=== PATIENT | female | born 1980 | race Caucasian/White ===

== ENCOUNTER 2020-07-18 09:07 | Outpatient (CLI) | payer OTHER ==
--- NOTE | 2020-07-18 09:50 | MMO ---
Bilateral MAMMO Bilat Screen [facility]. CLINICAL HISTORY: Patient is 40 years old and is seen for screening. The patient has no family history of breast cancer. The patient has no personal history of cancer. VIEWS: The views performed were: bilateral craniocaudal with tomosynthesis; bilateral mediolateral oblique with tomosynthesis; and right mediolateral oblique. This study has been interpreted with the assistance of computer-aided detection. MAMMOGRAM FINDINGS: There are scattered fibroglandular densities. There are punctate calcifications with regional distribution seen in the sub-areolar region of both breasts. IMPRESSION: CALCIFICATIONS IN BOTH BREASTS REQUIRE ADDITIONAL EVALUATION. MAGNIFICATION VIEWS ARE RECOMMENDED. THE RESULTS OF THIS EXAM WERE SENT TO THE PATIENT. ACR BI-RADS Category 0 - Incomplete: Need additional imaging evaluation. [facility] will notify the patient of the need for additional imaging services. MAMMOGRAPHY NOTE: 1. A negative mammogram report should not delay a biopsy if a dominant of clinically suspicious mass is present. 2. Approximately 10% to 15% of breast cancers are not detected by mammography. 3. Adenosis and dense breasts may obscure an underlying neoplasm. Reported by: CHUCKIE ROWLEY MD Electonically Signed: [id number]
== END 2020-07-18 09:08 | disposition home or self-care (01) ==
LOC: BICMAMMO 09:07
PROVIDERS: ATTEND Physician Assistant
DX: Z12.31 Encounter for screening mammogram for malignant neoplasm of breast (principal); R92.1 Mammographic calcification found on diagnostic imaging of breast
CPT/HCPCS: 77063; 77067

== ENCOUNTER 2020-08-01 08:31 | Outpatient (CLI) | payer OTHER ==
--- NOTE | 2020-08-01 09:04 | MMO ---
Bilateral MAMMO Bilat Diag [facility]. CLINICAL HISTORY: Patient is 40 years old and is seen for diagnostic exam. The patient has no family history of breast cancer. The patient has no personal history of cancer. VIEWS: The views performed were: bilateral craniocaudal with tomosynthesis; bilateral mediolateral oblique with tomosynthesis; and bilateral mediolateral with tomosynthesis. FILMS COMPARED: The present examination has been compared to a prior imaging study performed at [facility] on 07/18/2020. This study has been interpreted with the assistance of computer-aided detection. MAMMOGRAM FINDINGS: There are scattered fibroglandular densities. In the absence of prior films and the presence of bilaterality, the calcs are probably benign and should be followed up in 6 months. IMPRESSION: FINDINGS IN BOTH BREASTS ARE PROBABLY BENIGN. FOLLOW-UP IN 6 MONTHS IS RECOMMENDED. THE RESULTS OF THIS EXAM WERE SENT TO THE PATIENT. ACR BI-RADS Category 3 - Probably benign finding - short interval follow-up suggested. [facility] will notify the patient of the need for additional imaging services. This exam was interpreted in consultation with Dr Harsh Lemon who concurs. MAMMOGRAPHY NOTE: 1. A negative mammogram report should not delay a biopsy if a dominant of clinically suspicious mass is present. 2. Approximately 10% to 15% of breast cancers are not detected by mammography. 3. Adenosis and dense breasts may obscure an underlying neoplasm. Reported by: CHUCKIE ROWLEY MD Electonically Signed: [id number]
== END 2020-08-01 08:32 | disposition home or self-care (01) ==
LOC: BICMAMMO 08:31
PROVIDERS: ATTEND Physician Assistant
DX: R92.1 Mammographic calcification found on diagnostic imaging of breast (principal); R92.2 Inconclusive mammogram
CPT/HCPCS: 77066; G0279

== ENCOUNTER 2021-05-10 08:26 | Outpatient (CLI) | payer OTHER | END 2021-05-10 08:27 | disposition home or self-care (01) | LOC: BICMAMMO 08:26 | PROVIDERS: ATTEND Physician Assistant | DX: R92.8 Other abnormal and inconclusive findings on diagnostic imaging of breast (principal); R92.1 Mammographic calcification found on diagnostic imaging of breast | CPT/HCPCS: 77066; G0279 ==

== ENCOUNTER 2021-11-08 09:14 | Outpatient (CLI) | payer BC | END 2021-11-08 09:15 | disposition home or self-care (01) | LOC: BICMAMMO 09:14 | PROVIDERS: ATTEND Physician Assistant | DX: R92.8 Other abnormal and inconclusive findings on diagnostic imaging of breast (principal) | CPT/HCPCS: 77066; G0279 ==

== ENCOUNTER 2023-04-13 13:24 | Inpatient (IN) | payer BC ==
[2023-04-13] MEDS ORDERED: Morphine 4 MG/ML VIAL ONE ×2 (13:40→16:17)
[2023-04-13] MEDS ORDERED: Ondansetron PF 4 MG/2 ML Vial ONE ×2 (13:40→18:35)
[2023-04-13 13:43] LABS: #Eosinphils 0.1 thou/uL (0.0-0.7); #Monocytes 0.8 thou/uL (0.11-0.59); #Neutrophils 10.4 thou/uL (1.40-6.50); %Basophils 0.1 % (0.0-1.0); %Eosinophils 0.6 % (0.0-10.0); %Lymphocytes 14.5 % (21.0-51.0); %Monocytes 6.3 % (0.0-10.0); %Neutrophils 78.2 % (42.0-75.0); Hemoglobin 12.9 g/dL (12.0-16.0); Mean Corpuscular HGB CONC 31.5 g/dL (32.0-36.0); Mean Corpuscular Hemoglobin 27.8 pg (27.0-31.0); Mean Corpuscular Volume 88.4 fl (78.0-98.0); Mean Platelet Volume 10.8 fL (7.4-10.4); Platelet Count 348 10x3/uL (130-400); RBC Distribution Width 13.3 % (11.5-14.5); Red Blood Cell (RBC) Count 4.64 mill/uL (4.20-5.40); White Blood Cell (WBC) Count 13.3 10x3/uL (4.8-10.8)
[2023-04-13 14:11] LABS: ALT (SGPT) 31 U/L (8-55); AST (SGOT) 32 U/L (5-34); Albumin 4.3 g/dL (3.5-5.0); Alkaline Phosphatase 93 U/L (40-110); Anion Gap 17 mmol/L (10-20); BUN (Urea Nitrogen) 11 mg/dL (7.0-18.7); Bilirubin, Total 1.1 mg/dL (0.2-1.2); Calc. Creatinine Clearance 0 mL/min (70-130); Calcium 9.8 mg/dL (7.8-10.44); Carbon Dioxide 24 mmol/L (22-29); Chloride 101 mmol/L (98-107); Estimated GFR 88; Globulin 3.2 g/dL (2.4-3.5); Glucose 137 mg/dL (70-105); Lipase 33 U/L (8-78); Potassium 3.5 mmol/L (3.5-5.1); Protein, Total 7.5 g/dL (6.0-8.3); Sodium 138 mmol/L (136-145)
[2023-04-13] MEDS ORDERED: Iopamidol-370 76% 500 ML MDV (1 ML CHARGE) ONE (14:23)
[2023-04-13 16:01] LABS: BHCG - Serum Negative (NEGATIVE); Pregs Control Background? CLEAR/WHITE (CLR/WHITE); Pregs Control Bar Appear? YES (CONTROL BAR)
[2023-04-13 16:15] LABS: Troponin I Less than 0.010 ng/mL (< 0.028)
[2023-04-13] MEDS ORDERED: Sodium Chloride 0.9% 100 ML ONE (17:32)
[2023-04-13] MEDS ORDERED: Piperacillin/Tazobactam 4.5 GM VIAL ONE (17:32)
[2023-04-13] MEDS ORDERED: Ipratropium/Albuterol 3 ML NEB NEB PRN (17:48)
[2023-04-13] MEDS ORDERED: traMADol HCl 50 MG TAB PO PRN (17:48)
[2023-04-13] MEDS ORDERED: Ondansetron ODT 4 MG TAB PO PRN (17:48)
[2023-04-13] MEDS ORDERED: Morphine 2 MG/ML VIAL SLOW IVP PRN (17:48)
[2023-04-13] MEDS ORDERED: TETANUS, DIPHTHERIA TOX,ADULT (TDVAX) 0.5 ML VIAL IM ONE (17:48)
[2023-04-13] MEDS ORDERED: hydrALAZINE 20 MG/ML VIAL SLOW IVP PRN (17:48)
[2023-04-13] MEDS ORDERED: Piperacillin/Tazobactam 3.375 GM in Sodium Chloride 0.9% 100 ML IVPB SCH ×2 (18:00→22:00)
[2023-04-13] MEDS ORDERED: Neostigmine 0.5 MG in Syringe 0 ML SC SCH (18:00)
[2023-04-13] MEDS ORDERED: Ketorolac Tromethamine 30 MG/ML VIAL IVP SCH (18:30)
[2023-04-13] MEDS ORDERED: Ketorolac Tromethamine 30 MG/ML VIAL ONE (18:35)
[2023-04-13] MEDS ORDERED: diphenhydrAMINE 50 MG/ML VIAL IM PRN (18:46)
[2023-04-13] MEDS ORDERED: Promethazine HCl 25 MG/ML VIAL IM PRN (18:46)
[2023-04-13] MEDS ORDERED: diphenhydrAMINE 50 MG/ML VIAL IVP PRN (18:46)
[2023-04-13] MEDS ORDERED: Ondansetron PF 4 MG/2 ML Vial IVP PRN (18:46)
[2023-04-13] MEDS ORDERED: HYDROmorphone 10 mg/100 ml CADD IVPB PRN (18:46)
[2023-04-13] MEDS ORDERED: Naloxone HCl 0.4 mg/ml Vial IV PRN (18:46)
[2023-04-13] MEDS ORDERED: diphenhydrAMINE 25 MG CAP PO PRN (18:46)
[2023-04-13] MEDS ORDERED: Communication Order-Pharmacy FS SCH (19:00)
[2023-04-13] MEDS ORDERED: methylPREDNISolone Sod Succ/PF 125 MG/2 ML VIAL IVP SCH (20:00)
[2023-04-13] MEDS: methylPREDNISolone Sod Succ 40 MG VIAL IVP SCH (20:16)
[2023-04-13] MEDS: Acetaminophen 325 MG TAB PO SCH (20:17)
[2023-04-13] MEDS: Famotidine/PF 20 mg/2ml Vial SLOW IVP SCH (20:53)
[2023-04-13] MEDS: Sodium Chloride 0.9% 1,000 ML IV SCH (20:55)
[2023-04-14] MEDS: Acetaminophen 325 MG TAB PO SCH ×5 (00:23→23:16)
[2023-04-14] MEDS ORDERED: Ketorolac Tromethamine 30 MG/ML VIAL IVP PRN (00:26)
[2023-04-14] MEDS: Famotidine 20 MG TAB PO SCH ×3 (03:21→20:44)
[2023-04-14 05:09] VITALS: BMI 26.6
[2023-04-14 05:25] LABS: #Monocytes 0.5 thou/uL (0.11-0.59); #Neutrophils 5.2 thou/uL (1.40-6.50); %Basophils 0.2 % (0.0-1.0); %Lymphocytes 12.7 % (21.0-51.0); %Monocytes 7.4 % (0.0-10.0); %Neutrophils 79.5 % (42.0-75.0); Hematocrit 34.7 % (36.0-47.0); Mean Corpuscular HGB CONC 31.7 g/dL (32.0-36.0); Mean Corpuscular Hemoglobin 28.1 pg (27.0-31.0); Mean Corpuscular Volume 88.7 fl (78.0-98.0); Mean Platelet Volume 11.1 fL (7.4-10.4); Platelet Count 289 10x3/uL (130-400); RBC Distribution Width 13.5 % (11.5-14.5); Red Blood Cell (RBC) Count 3.91 mill/uL (4.20-5.40); White Blood Cell (WBC) Count 6.5 10x3/uL (4.8-10.8)
[2023-04-14 05:56] LABS: Anion Gap 14 mmol/L (10-20); BUN (Urea Nitrogen) 13 mg/dL (7.0-18.7); Calc. Creatinine Clearance 118 mL/min (70-130); Calcium 8.6 mg/dL (7.8-10.44); Carbon Dioxide 20 mmol/L (22-29); Chloride 107 mmol/L (98-107); Estimated GFR 98; Glucose 143 mg/dL (70-105); Sodium 137 mmol/L (136-145)
[2023-04-14] MEDS: Sodium Chloride 0.9% 1,000 ML IV SCH ×2 (07:22→13:32)
[2023-04-14] MEDS: Famotidine/PF 20 mg/2ml Vial SLOW IVP SCH ×2 (08:31→20:44)
[2023-04-14] MEDS: methylPREDNISolone Sod Succ 40 MG VIAL IVP SCH ×2 (08:31→20:44)
[2023-04-14] MEDS ORDERED: FLU VACC QS2023-24(6MOS UP)/PF 60 MCG/0.5 ML SYRINGE IM ONE (09:00)
[2023-04-14] MEDS ORDERED: Sodium Chloride 0.9% 1,000 ML IV SCH (11:56)
[2023-04-14] MEDS ORDERED: GoLYTELY 4,000 ml Bottle PO SCH (14:00)
[2023-04-15] MEDS: Sodium Chloride 0.9% 1,000 ML IV SCH (01:00)
[2023-04-15] MEDS: Acetaminophen 325 MG TAB PO SCH ×2 (05:39→11:42)
[2023-04-15] MEDS: Famotidine/PF 20 mg/2ml Vial SLOW IVP SCH (09:42)
[2023-04-15] MEDS ORDERED: Morphine Sulfate 2 MG/ML SYRINGE SLOW IVP PRN (09:50)
[2023-04-15] MEDS ORDERED: Meperidine HCl/PF 25 MG/ML VIAL SLOW IVP PRN (09:50)
[2023-04-15] MEDS ORDERED: Promethazine HCl 25 MG/ML VIAL IM PRN (09:50)
[2023-04-15] MEDS ORDERED: Ondansetron HCl/PF 4 MG/2 ML Vial IVP PRN (09:50)
[2023-04-15] MEDS ORDERED: Ketorolac Tromethamine 30 MG/ML VIAL IVP PRN (09:50)
[2023-04-15] MEDS ORDERED: HYDROmorphone 2 MG/ML VIAL SLOW IVP PRN (09:50)
[2023-04-15] MEDS ORDERED: PROPOFOL 200 MG/20 ML VIAL ONE (09:55)
[2023-04-15] MEDS ORDERED: Lidocaine 1% PF 5 ML VIAL ONE (09:55)
[2023-04-15] MEDS: methylPREDNISolone Sod Succ 40 MG VIAL IVP SCH (11:42)
[2023-04-15 12:16] VITALS: BP 150/102; TEMP 97.7
== END 2023-04-15 14:11 | disposition home or self-care (01) | DRG 386 ==
LOC: ERS 13:24 → SJJU 19:30
PROVIDERS: ADMIT Internal Medicine; ATTEND Internal Medicine
PROC: 0DBH8ZX Excision of Cecum, Via Natural or Artificial Opening Endoscopic, Diagnostic (ICD-10-PCS; principal; 2023-04-15)
PROC: 0DBL8ZZ Excision of Transverse Colon, Via Natural or Artificial Opening Endoscopic (ICD-10-PCS; 2023-04-15)
DX: K50.912 Crohn's disease, unspecified, with intestinal obstruction (principal); K56.1 Intussusception; K56.600 Partial intestinal obstruction, unspecified as to cause; K82.4 Cholesterolosis of gallbladder; Z79.899 Other long term (current) drug therapy; Z80.0 Family history of malignant neoplasm of digestive organs; Z87.891 Personal history of nicotine dependence
CPT/HCPCS: 36415; 74177; 76705; 80048; 80053; 83605; 83690; 84145; 84484; 84703; 85025; 86140; 88305; 93005; 96365; 96375; 96376; J1885; J2270; J2405; J2543; J2704; J2710; J2920; J3490; J7050; Q9967; S0028

== ENCOUNTER 2023-06-02 11:14 | Inpatient (IN) | payer BC ==
[2023-06-02] MEDS ORDERED: Prochlorperazine 10 MG/2 ML VIAL ONE (11:38)
[2023-06-02] MEDS ORDERED: Piperacillin/Tazobactam 3.375 GM VIAL ONE ×2 (11:49→20:26)
[2023-06-02] MEDS ORDERED: Sodium Chloride 0.9% 100 ML ONE ×2 (11:49→20:26)
[2023-06-02] MEDS ORDERED: fentaNYL 50 mcg/mL 1 mL Vial ONE (12:01)
[2023-06-02 12:04] LABS: #Monocytes 1.3 thou/uL (0.11-0.59); #Neutrophils 14.9 thou/uL (1.40-6.50); %Basophils 0.1 % (0.0-1.0); %Lymphocytes 7.6 % (21.0-51.0); %Monocytes 7.5 % (0.0-10.0); %Neutrophils 84.4 % (42.0-75.0); Hematocrit 36.1 % (36.0-47.0); Hemoglobin 11.2 g/dL (12.0-16.0); Mean Corpuscular Hemoglobin 24.9 pg (27.0-31.0); Mean Corpuscular Volume 80.2 fl (78.0-98.0); Platelet Count 413 10x3/uL (130-400); RBC Distribution Width 15.5 % (11.5-14.5); White Blood Cell (WBC) Count 17.7 10x3/uL (4.8-10.8)
[2023-06-02 12:26] LABS: BHCG - Serum Negative (NEGATIVE); Pregs Control Background? CLEAR/WHITE (CLR/WHITE); Pregs Control Bar Appear? YES (CONTROL BAR)
[2023-06-02 12:32] LABS: ALT (SGPT) 20 U/L (8-55); AST (SGOT) 13 U/L (5-34); Alkaline Phosphatase 66 U/L (40-110); Anion Gap 18 mmol/L (10-20); BUN (Urea Nitrogen) 10 mg/dL (7.0-18.7); Bilirubin, Total 1.9 mg/dL (0.2-1.2); Calc. Creatinine Clearance 0 mL/min (70-130); Calcium 9.6 mg/dL (7.8-10.44); Carbon Dioxide 22 mmol/L (22-29); Chloride 94 mmol/L (98-107); Estimated GFR 72; Globulin 3.4 g/dL (2.4-3.5); Glucose 117 mg/dL (70-105); Lipase 18 U/L (8-78); Magnesium 1.7 mg/dL (1.6-2.6); Potassium 3.3 mmol/L (3.5-5.1); Protein, Total 7.4 g/dL (6.0-8.3); Sodium 131 mmol/L (136-145)
[2023-06-02] MEDS ORDERED: Naloxone HCl 0.4 mg/ml Vial ONE (12:44)
[2023-06-02] MEDS ORDERED: HYDROmorphone 0.5 MG/0.5 ML SYRINGE ONE (12:44)
[2023-06-02] MEDS ORDERED: Ondansetron PF 4 MG/2 ML Vial ONE ×3 (13:28→21:40)
[2023-06-02 15:34] VITALS: BMI 25.8
[2023-06-02] MEDS ORDERED: Dextrose 5% in Water 1,000 ML IV PRN (15:39)
[2023-06-02] MEDS ORDERED: hydrALAZINE 20 MG/ML VIAL SLOW IVP PRN (15:39)
[2023-06-02] MEDS ORDERED: Dextrose 50% Abboject 50 ML SYRINGE SLOW IVP PRN (15:39)
[2023-06-02] MEDS ORDERED: Ipratropium/Albuterol 3 ML NEB NEB PRN (15:39)
[2023-06-02] MEDS ORDERED: Ondansetron PF 4 MG/2 ML Vial IVP PRN ×2 (15:39→21:01)
[2023-06-02] MEDS ORDERED: Glucagon 1 MG/ML KIT IM PRN (15:39)
[2023-06-02] MEDS ORDERED: Fentanyl 100 MCG/2 ML VIAL SLOW IVP PRN (15:39)
[2023-06-02] MEDS ORDERED: Promethazine HCl 25 MG/ML VIAL IM PRN ×3 (15:39→21:01)
[2023-06-02] MEDS: D5 1/2 NS w/20 mEq KCL 1,000 ML IV SCH ×2 (16:14→23:15)
[2023-06-02] MEDS ORDERED: Piperacillin/Tazobactam 3.375 GM in Sodium Chloride 0.9% 100 ML IVPB SCH ×2 (16:15→18:00)
[2023-06-02] MEDS ORDERED: Prochlorperazine Edisylate 10 MG in Sodium Chloride 0.9% 50 ML IVPB PRN (17:35)
[2023-06-02] MEDS ORDERED: Lidocaine 1% PF 5 ML VIAL ONE ×2 (17:57→20:40)
[2023-06-02] MEDS ORDERED: Rocuronium Bromide 10 MG/ML (10ML VIAL) ONE ×3 (17:59→20:40)
[2023-06-02] MEDS ORDERED: NEOSTIGMINE 3 MG/3 ML SYR 3 MG/3 ML SYRINGE ONE ×2 (20:40→21:53)
[2023-06-02] MEDS ORDERED: Glycopyrrolate 0.2 MG/ML 5 ML SYRINGE ONE ×2 (20:40→21:53)
[2023-06-02] MEDS ORDERED: PROPOFOL 200 MG/20 ML VIAL ONE (20:40)
[2023-06-02] MEDS ORDERED: Albumin 5% 500 ML ONE (20:50)
[2023-06-02] MEDS ORDERED: diphenhydrAMINE 50 MG/ML VIAL IVP PRN (21:01)
[2023-06-02] MEDS ORDERED: Ondansetron HCl/PF 4 MG/2 ML Vial IVP PRN (21:01)
[2023-06-02] MEDS ORDERED: diphenhydrAMINE 25 MG CAP PO PRN (21:01)
[2023-06-02] MEDS ORDERED: diphenhydrAMINE 50 MG/ML VIAL IM PRN (21:01)
[2023-06-02] MEDS ORDERED: FENTANYL 500 MCG/10 ML VIAL 2,000 MCG in Sodium Chloride 0.9% 60 ML IV PRN (21:01)
[2023-06-02] MEDS ORDERED: Naloxone HCl 0.4 mg/ml Vial IV PRN (21:01)
[2023-06-02] MEDS ORDERED: Fentanyl 250 MCG/5 ML VIAL ONE (21:10)
[2023-06-02] MEDS ORDERED: Communication Order-Pharmacy FS SCH (21:15)
[2023-06-02] MEDS ORDERED: Ketorolac Tromethamine 30 MG/ML VIAL ONE (22:27)
[2023-06-02] MEDS: Piperacillin/Tazobactam 3.375 GM in Sodium Chloride 0.9% 100 ML IVPB SCH (22:45)
[2023-06-02] MEDS: Famotidine 20 MG TAB PO SCH (22:45)
[2023-06-02] MEDS: Famotidine/PF 20 mg/2ml Vial SLOW IVP SCH (23:07)
[2023-06-03] MEDS: Ketorolac Tromethamine 30 MG/ML VIAL IVP PRN ×3 (05:01→20:21)
[2023-06-03] MEDS: Piperacillin/Tazobactam 3.375 GM in Sodium Chloride 0.9% 100 ML IVPB SCH ×3 (05:02→20:20)
[2023-06-03 06:16] LABS: #Monocytes 0.5 thou/uL (0.11-0.59); #Neutrophils 4.9 thou/uL (1.40-6.50); %Basophils 0.2 % (0.0-1.0); %Lymphocytes 12.5 % (21.0-51.0); %Monocytes 7.4 % (0.0-10.0); %Neutrophils 79.7 % (42.0-75.0); Hematocrit 28.8 % (36.0-47.0); Hemoglobin 8.8 g/dL (12.0-16.0); Mean Corpuscular HGB CONC 30.6 g/dL (32.0-36.0); Mean Corpuscular Hemoglobin 24.9 pg (27.0-31.0); Mean Corpuscular Volume 81.6 fl (78.0-98.0); Mean Platelet Volume 10.3 fL (7.4-10.4); RBC Distribution Width 15.6 % (11.5-14.5); Red Blood Cell (RBC) Count 3.53 mill/uL (4.20-5.40); White Blood Cell (WBC) Count 6.2 10x3/uL (4.8-10.8)
[2023-06-03 06:18] LABS: Platelet Count 300 10x3/uL (130-400)
[2023-06-03 06:40] LABS: Anion Gap 10 mmol/L (10-20); BUN (Urea Nitrogen) 7 mg/dL (7.0-18.7); Calc. Creatinine Clearance 124 mL/min (70-130); Calcium 7.5 mg/dL (7.8-10.44); Carbon Dioxide 21 mmol/L (22-29); Chloride 104 mmol/L (98-107); Estimated GFR 108; Glucose 158 mg/dL (70-105); Potassium 3.6 mmol/L (3.5-5.1); Sodium 131 mmol/L (136-145)
[2023-06-03 06:54] LABS: Hep C IgG Ab Non-Reactive S/CO (NonReactive); Hep C Index 0.05 S/CO (0-0.79)
[2023-06-03] MEDS: D5 1/2 NS w/20 mEq KCL 1,000 ML IV SCH ×2 (07:30→15:52)
[2023-06-03 07:41] LABS: HBSAg Index 0.21 S/CO (0-0.99); Hep B Surf Ag Non-Reactive S/CO (NonReactive)
[2023-06-03 07:55] LABS: HBSAB Concentration 221.27 mIU/mL; Hep B Surf AB Reactive (NonReactive)
[2023-06-03] MEDS: Famotidine/PF 20 mg/2ml Vial SLOW IVP SCH ×2 (09:12→20:20)
[2023-06-03] MEDS: Famotidine 20 MG TAB PO SCH ×2 (09:12→20:20)
[2023-06-03] MEDS: Sodium Chloride 0.9% 1,000 ML IV SCH (20:19)
[2023-06-04] MEDS: Piperacillin/Tazobactam 3.375 GM in Sodium Chloride 0.9% 100 ML IVPB SCH ×3 (04:42→20:52)
[2023-06-04] MEDS: Sodium Chloride 0.9% 1,000 ML IV SCH (04:42)
[2023-06-04 05:35] LABS: #Monocytes 0.7 thou/uL (0.11-0.59); #Neutrophils 4.9 thou/uL (1.40-6.50); %Basophils 0.3 % (0.0-1.0); %Eosinophils 0.6 % (0.0-10.0); %Lymphocytes 15.9 % (21.0-51.0); %Monocytes 10.3 % (0.0-10.0); %Neutrophils 72.6 % (42.0-75.0); Hematocrit 25.6 % (36.0-47.0); Hemoglobin 7.6 g/dL (12.0-16.0); Mean Corpuscular HGB CONC 29.7 g/dL (32.0-36.0); Mean Corpuscular Hemoglobin 24.8 pg (27.0-31.0); Mean Corpuscular Volume 83.7 fl (78.0-98.0); Mean Platelet Volume 10.1 fL (7.4-10.4); Platelet Count 274 10x3/uL (130-400); RBC Distribution Width 15.8 % (11.5-14.5); Red Blood Cell (RBC) Count 3.06 mill/uL (4.20-5.40); White Blood Cell (WBC) Count 6.7 10x3/uL (4.8-10.8)
[2023-06-04 06:02] LABS: Anion Gap 10 mmol/L (10-20); BUN (Urea Nitrogen) 4 mg/dL (7.0-18.7); Calc. Creatinine Clearance 128 mL/min (70-130); Calcium 7.7 mg/dL (7.8-10.44); Carbon Dioxide 22 mmol/L (22-29); Chloride 103 mmol/L (98-107); Estimated GFR 110; Glucose 97 mg/dL (70-105); Potassium 3.9 mmol/L (3.5-5.1); Sodium 131 mmol/L (136-145)
[2023-06-04] MEDS: Famotidine 20 MG TAB PO SCH ×2 (08:21→20:52)
[2023-06-04] MEDS: Famotidine/PF 20 mg/2ml Vial SLOW IVP SCH ×2 (08:21→20:52)
[2023-06-04] MEDS ORDERED: Acetaminophen 325 MG TAB PO PRN (11:56)
[2023-06-04] MEDS ORDERED: Fentanyl 100 MCG/2 ML VIAL SLOW IVP PRN (11:56)
[2023-06-04] MEDS: Ketorolac Tromethamine 30 MG/ML VIAL IVP PRN ×2 (12:26→20:54)
[2023-06-04] MEDS: HYDROcodone/Acetaminophen 7.5/325 mg Tablet PO PRN ×2 (12:26→20:51)
[2023-06-04] MEDS ORDERED: fentaNYL 50 mcg/mL 1 mL Vial SLOW IVP PRN (14:30)
[2023-06-04] MEDS ORDERED: Lorazepam 1 MG TAB PO PRN (21:21)
[2023-06-05] MEDS: Piperacillin/Tazobactam 3.375 GM in Sodium Chloride 0.9% 100 ML IVPB SCH ×2 (04:32→12:48)
[2023-06-05 09:15] VITALS: BP 135/95; TEMP 98.1
[2023-06-05] MEDS: HYDROcodone/Acetaminophen 7.5/325 mg Tablet PO PRN (09:16)
[2023-06-05] MEDS: Famotidine 20 MG TAB PO SCH (09:16)
[2023-06-05] MEDS: Ketorolac Tromethamine 30 MG/ML VIAL IVP PRN (09:17)
[2023-06-05] MEDS: Famotidine/PF 20 mg/2ml Vial SLOW IVP SCH (10:17)
[2023-06-06 14:13] LABS: QuantiFERON-TB Gold Plus Negative (Negative)
== END 2023-06-05 14:08 | disposition home or self-care (01) | DRG 329 ==
LOC: ERS 11:14 → EEVIPCON 13:13 → SJJU 13:13
PROVIDERS: ADMIT Surgery; ATTEND Surgery
PROC: 0DTF0ZZ Resection of Right Large Intestine, Open Approach (ICD-10-PCS; principal; 2023-06-02)
PROC: 0D1B0Z4 Bypass Ileum to Cutaneous, Open Approach (ICD-10-PCS; 2023-06-02)
PROC: 3E0M05Z Introduction of Adhesion Barrier into Peritoneal Cavity, Open Approach (ICD-10-PCS; 2023-06-02)
PROC: 30233J1 Transfusion of Nonautologous Serum Albumin into Peripheral Vein, Percutaneous Approach (ICD-10-PCS; 2023-06-02)
DX: C18.0 Malignant neoplasm of cecum (principal); K63.1 Perforation of intestine (nontraumatic); C77.2 Secondary and unspecified malignant neoplasm of intra-abdominal lymph nodes; Z98.890 Other specified postprocedural states; Z79.899 Other long term (current) drug therapy; Z79.82 Long term (current) use of aspirin
CPT/HCPCS: 36415; 71046; 80048; 80053; 82378; 83605; 83690; 83735; 84703; 85025; 86480; 86706; 86803; 87040; 87340; 88309; 96365; 96375; A4314; A4649; C1776; J0780; J1170; J1650; J1885; J2310; J2405; J2543; J2704; J3010; J3480; J3490; J7050; P9045; S0028

== ENCOUNTER 2023-06-15 13:11 | Outpatient (CLI) | payer BC ==
[2023-06-15] MEDS ORDERED: Iopamidol 370 76% 100 ML VIAL ONE (14:31)
== END 2023-06-15 13:12 | disposition home or self-care (01) ==
LOC: CT 13:11
PROVIDERS: ATTEND Internal Medicine
DX: C18.2 Malignant neoplasm of ascending colon (principal); K76.89 Other specified diseases of liver; Z90.49 Acquired absence of other specified parts of digestive tract
CPT/HCPCS: 71260; 74177; Q9967

== ENCOUNTER 2023-06-16 10:06 | Day surgery (SDC) | payer BC ==
[2023-06-15 09:33] VITALS: BMI 25.9
[2023-06-16] MEDS ORDERED: Sodium Chloride 0.9% 100 ML ONE (11:13)
[2023-06-16] MEDS ORDERED: CEFAZOLIN 2 GM VIAL ONE (11:13)
[2023-06-16] MEDS ORDERED: Lidocaine 1% MPF 2 ML VIAL ONE (11:13)
[2023-06-16] MEDS ORDERED: EPINEPHrine 1 MG/ML VIAL ONE (12:42)
[2023-06-16] MEDS ORDERED: Bupivacaine 0.25% HCL 30 ML VIAL ONE (12:42)
[2023-06-16] MEDS ORDERED: Propofol 500 MG/50 ML VIAL ONE (14:16)
[2023-06-16] MEDS ORDERED: Midazolam HCl 2 mg/2 ml Vial ONE ×2 (14:17→14:28)
[2023-06-16] MEDS ORDERED: fentaNYL PF 100 MCG/2 ML SYRINGE ONE (14:17)
[2023-06-16] MEDS ORDERED: Lidocaine 2% PF 5 ML VIAL ONE (14:19)
[2023-06-16] MEDS ORDERED: Lidocaine 1% PF 5 ML VIAL ONE ×2 (14:46→14:48)
== END 2023-06-16 16:00 | disposition home or self-care (01) ==
LOC: SDC 10:06
PROVIDERS: ATTEND Surgery
PROC: 0JH63WZ Insertion of Totally Implantable Vascular Access Device into Chest Subcutaneous Tissue and Fascia, Percutaneous Approach (ICD-10-PCS; principal; 2023-06-16)
DX: C18.9 Malignant neoplasm of colon, unspecified (principal); F17.200 Nicotine dependence, unspecified, uncomplicated; F10.90 Alcohol use, unspecified, uncomplicated; Z79.899 Other long term (current) drug therapy
CPT/HCPCS: 71045; C1788; J0171; J1642; J2001; J2250; J2704; J3490; S0020

== ENCOUNTER 2023-06-24 08:14 | Outpatient (CLI) | payer BC | END 2023-06-24 08:15 | disposition home or self-care (01) | LOC: SCSMRI 08:14 | PROVIDERS: ATTEND Internal Medicine | DX: K76.9 Liver disease, unspecified (principal); C18.9 Malignant neoplasm of colon, unspecified; K76.89 Other specified diseases of liver | CPT/HCPCS: 74183 ==

== ENCOUNTER 2023-11-25 08:56 | Outpatient (CLI) | payer BC ==
[2023-11-25] MEDS ORDERED: Iopamidol 370 76% 100 ML VIAL ONE (10:57)
[2023-11-25] MEDS ORDERED: GASTROGRAFIN 30 ML BOT ONE (10:57)
== END 2023-11-25 08:57 | disposition home or self-care (01) ==
LOC: CT 08:56
PROVIDERS: ATTEND Internal Medicine
DX: C18.9 Malignant neoplasm of colon, unspecified (principal); K76.9 Liver disease, unspecified; N83.8 Other noninflammatory disorders of ovary, fallopian tube and broad ligament
CPT/HCPCS: 71260; 74177; Q9963; Q9967

== ENCOUNTER 2023-12-16 07:58 | Outpatient (CLI) | payer BC | END 2023-12-16 07:59 | disposition home or self-care (01) | LOC: ULT 07:58 | PROVIDERS: ATTEND Internal Medicine | DX: N83.8 Other noninflammatory disorders of ovary, fallopian tube and broad ligament (principal) | CPT/HCPCS: 76856 ==

== ENCOUNTER 2023-12-24 11:31 | Outpatient (CLI) | payer BC ==
[2023-12-24 13:10] LABS: #Basophils 0.02 10x3/uL (0.0-0.2); #Eosinphils 0.03 10x3/uL (0.0-0.5); #Monocytes 0.46 10x3/uL (0.0-1.1); %Basophils 0.4 % (0.0-2.0); %Eosinophils 0.7 % (0.0-6.0); %Lymphocytes 33.4 % (18.0-47.0); %Monocytes 10.1 % (0.0-10.0); Hematocrit 35.3 % (34.9-44.5); Hemoglobin 12.4 g/dL (12.0-15.5); Mean Corpuscular HGB CONC 35.1 g/dL (32.0-36.0); Mean Corpuscular Hemoglobin 38.3 pg (27.0-33.0); Mean Platelet Volume 10.7 fL (7.4-10.4); Platelet Count 146 10x3/uL (150-450); RBC Distribution Width 12.8 % (11.5-14.5); Red Blood Cell (RBC) Count 3.24 10x6/uL (3.90-5.03); White Blood Cell (WBC) Count 4.6 10x3/uL (3.5-10.5)
[2023-12-24 13:23] LABS: Anion Gap 14 mmol/L (10-20); BHCG - Serum Negative (NEGATIVE); BUN (Urea Nitrogen) 7 mg/dL (7.0-18.7); Calc. Creatinine Clearance 0 mL/min (70-130); Calcium 9.2 mg/dL (7.8-10.44); Carbon Dioxide 20 mmol/L (22-29); Chloride 110 mmol/L (98-107); Estimated GFR 97; Glucose 90 mg/dL (70-105); Pregs Control Background? CLEAR/WHITE (CLR/WHITE); Pregs Control Bar Appear? YES (CONTROL BAR); Sodium 140 mmol/L (136-145)
== END 2023-12-24 11:32 | disposition home or self-care (01) ==
LOC: LABBT 11:31
PROVIDERS: ATTEND Surgery
DX: Z01.812 Encounter for preprocedural laboratory examination (principal); C18.9 Malignant neoplasm of colon, unspecified
CPT/HCPCS: 80048; 84703; 85025

== ENCOUNTER 2023-12-29 08:51 | Inpatient (IN) | payer BC ==
[2023-12-24 11:49] VITALS: BMI 26.6
[2023-12-29] MEDS ORDERED: PROPOFOL 20 ML ONE ×2 (10:11→12:27)
[2023-12-29] MEDS ORDERED: Rocuronium Bromide 10 MG/ML (10ML VIAL) ONE (10:14)
[2023-12-29] MEDS ORDERED: Lidocaine 1% PF 5 ML VIAL ONE (10:14)
[2023-12-29] MEDS ORDERED: fentaNYL PF 100 MCG/2 ML SYRINGE ONE ×3 (11:14→14:30)
[2023-12-29] MEDS ORDERED: Bupivacaine 0.25% HCL 30 ML VIAL ONE (11:23)
[2023-12-29] MEDS ORDERED: EPINEPHrine 1 MG/ML VIAL ONE (11:23)
[2023-12-29] MEDS ORDERED: cefOXitin 2 GM VIAL ONE (11:30)
[2023-12-29] MEDS ORDERED: Sodium Chloride 0.9% 100 ML ONE (11:30)
[2023-12-29] MEDS ORDERED: Dexamethasone 20 MG/5 ML VIAL ONE (11:50)
[2023-12-29] MEDS ORDERED: Glycopyrrolate 0.2 MG/ML 5 ML SYRINGE ONE (12:12)
[2023-12-29] MEDS ORDERED: ePHEDrine Sulfate 50 MG/10 ML VIAL ONE (12:12)
[2023-12-29] MEDS ORDERED: Ketorolac Tromethamine 30 MG (1 mL) VIAL ONE (13:01)
[2023-12-29] MEDS ORDERED: Ondansetron PF 4 MG/2 ML Vial ONE (13:01)
[2023-12-29] MEDS ORDERED: SUGAMMADEX SODIUM 200 MG/2 ML VIAL ONE (13:04)
[2023-12-29] MEDS ORDERED: HYDROmorphone 0.5 MG/0.5 ML SYRINGE ONE (14:53)
[2023-12-29] MEDS ORDERED: Promethazine HCl 25 MG/ML VIAL IM PRN (15:35)
[2023-12-29] MEDS ORDERED: Dextrose 5% in Water 1,000 ML IV PRN (15:35)
[2023-12-29] MEDS ORDERED: Ipratropium/Albuterol 3 ML NEB NEB PRN (15:35)
[2023-12-29] MEDS ORDERED: hydrALAZINE 20 MG/ML VIAL SLOW IVP PRN (15:35)
[2023-12-29] MEDS ORDERED: Glucagon 1 MG/ML KIT IM PRN (15:35)
[2023-12-29] MEDS ORDERED: Ondansetron PF 4 MG/2 ML Vial IVP PRN (15:35)
[2023-12-29] MEDS ORDERED: Dextrose 50% Abboject 50 ML SYRINGE SLOW IVP PRN (15:35)
[2023-12-29] MEDS: Acetaminophen 325 MG TAB PO SCH (17:52)
[2023-12-29] MEDS: Morphine 4 MG/ML VIAL SLOW IVP PRN (17:53)
[2023-12-29] MEDS: D5 1/2 NS w/20 mEq KCL 1,000 ML IV SCH (17:56)
[2023-12-29] MEDS: Famotidine 20 MG TAB PO SCH (20:10)
[2023-12-29] MEDS: Ketorolac Tromethamine 30 MG (1 mL) VIAL IVP PRN (20:20)
[2023-12-29] MEDS: Famotidine/PF 20 mg/2ml Vial SLOW IVP SCH (20:21)
[2023-12-30] MEDS: traMADol HCl 50 MG TAB PO PRN
[2023-12-30 06:12] LABS: #Basophils Less than 0.03 10x3/uL (0.0-0.2); #Eosinphils Less than 0.03 10x3/uL (0.0-0.7); %Basophils 0.1 % (0.0-1.0); %Lymphocytes 12.6 % (21.0-51.0); %Monocytes 4.8 % (0.0-10.0); %Neutrophils 82.3 % (42.0-75.0); Hematocrit 30.4 % (36.0-47.0); Hemoglobin 10.2 g/dL (12.0-16.0); Mean Corpuscular HGB CONC 33.6 g/dL (32.0-36.0); Mean Corpuscular Hemoglobin 36.4 pg (27.0-31.0); Mean Corpuscular Volume 108.6 fL (78.0-98.0); Platelet Count 100 10x3/uL (130-400); RBC Distribution Width 12.7 % (11.5-14.5)
[2023-12-30 06:21] LABS: Anion Gap 14 mmol/L (10-20); BUN (Urea Nitrogen) 8 mg/dL (7.0-18.7); Calc. Creatinine Clearance 121 mL/min (70-130); Calcium 7.7 mg/dL (7.8-10.44); Carbon Dioxide 18 mmol/L (22-29); Chloride 107 mmol/L (98-107); Estimated GFR 101; Glucose 122 mg/dL (70-105); Potassium 3.7 mmol/L (3.5-5.1); Sodium 135 mmol/L (136-145)
[2023-12-30] MEDS: Enoxaparin 40 MG (0.4 mL) SYRINGE SC SCH (08:45)
[2023-12-30] MEDS ORDERED: D5 1/2 NS w/20 mEq KCL 1,000 ML IV SCH (09:48)
[2023-12-30] MEDS: Ketorolac Tromethamine 30 MG (1 mL) VIAL IVP PRN (16:03)
[2023-12-31 06:54] LABS: #Basophils Less than 0.03 10x3/uL (0.0-0.2); #Eosinphils Less than 0.03 10x3/uL (0.0-0.7); %Basophils 0.1 % (0.0-1.0); %Eosinophils 0.1 % (0.0-10.0); %Lymphocytes 8.8 % (21.0-51.0); %Monocytes 4.4 % (0.0-10.0); %Neutrophils 86.2 % (42.0-75.0); Hematocrit 32.8 % (36.0-47.0); Hemoglobin 10.9 g/dL (12.0-16.0); Mean Corpuscular HGB CONC 33.2 g/dL (32.0-36.0); Mean Corpuscular Hemoglobin 37.6 pg (27.0-31.0); Mean Corpuscular Volume 113.1 fL (78.0-98.0); Mean Platelet Volume 10.5 fL (7.4-10.4); Platelet Count 95 10x3/uL (130-400); RBC Distribution Width 12.8 % (11.5-14.5)
[2023-12-31 07:07] LABS: Anion Gap 12 mmol/L (10-20); BUN (Urea Nitrogen) 4 mg/dL (7.0-18.7); Calc. Creatinine Clearance 130 mL/min (70-130); Calcium 8.1 mg/dL (7.8-10.44); Carbon Dioxide 18 mmol/L (22-29); Chloride 105 mmol/L (98-107); Estimated GFR 110; Glucose 92 mg/dL (70-105); Potassium 3.1 mmol/L (3.5-5.1); Sodium 132 mmol/L (136-145)
[2023-12-31] MEDS: Sodium Chloride 0.9% 1,000 ML IV SCH (08:38)
[2023-12-31] MEDS: Piperacillin/Tazobactam 3.375 GM in Sodium Chloride 0.9% 100 ML IVPB SCH ×2 (09:10→14:25)
[2023-12-31] MEDS: Potassium Chloride 20 MEQ in Premix 1 BAG IVPB SCH (11:40)
[2023-12-31] MEDS: D5 1/2 NS w/20 mEq KCL 1,000 ML IV SCH (11:41)
[2023-12-31] MEDS ORDERED: GASTROGRAFIN 30 ML BOT ONE (15:29)
[2023-12-31] MEDS ORDERED: Iopamidol-370 76% 500 ML MDV (1 ML CHARGE) ONE (15:29)
[2023-12-31] MEDS: Ipratropium/Albuterol 3 ML NEB NEB SCH (19:47)
[2024-01-01] MEDS: Acetaminophen 650 MG/20.3 ML UDCUP PO SCH (05:56)
[2024-01-01 06:18] LABS: Anion Gap 9 mmol/L (10-20); BUN (Urea Nitrogen) Less than 4 mg/dL (7.0-18.7); Calc. Creatinine Clearance 140 mL/min (70-130); Calcium 7.7 mg/dL (7.8-10.44); Carbon Dioxide 20 mmol/L (22-29); Chloride 107 mmol/L (98-107); Estimated GFR 112; Glucose 115 mg/dL (70-105); Potassium 3.1 mmol/L (3.5-5.1); Sodium 133 mmol/L (136-145)
[2024-01-01 06:59] LABS: Hematocrit 31.8 % (36.0-47.0); Hemoglobin 10.4 g/dL (12.0-16.0); Mean Corpuscular HGB CONC 32.7 g/dL (32.0-36.0); Mean Corpuscular Hemoglobin 36.6 pg (27.0-31.0); Mean Platelet Volume 10.7 fL (7.4-10.4); Platelet Count 100 10x3/uL (130-400); RBC Distribution Width 12.8 % (11.5-14.5); Red Blood Cell (RBC) Count 2.84 mill/uL (4.20-5.40)
[2024-01-01 08:57] LABS: Macrocytosis SLIGHT = 6-15 cells HPF (0-5); Platelet Adequacy Comment Platelets Decreased; Polychromasia SLIGHT = 2-3 cells HPF (0-2)
[2024-01-01 09:12] LABS: #Basophils Less than 0.03 10x3/uL (0.0-0.2); #Eosinphils Less than 0.03 10x3/uL (0.0-0.7); %Basophils 0.1 % (0.0-1.0); %Eosinophils 0.2 % (0.0-10.0); %Lymphocytes 9.2 % (21.0-51.0); %Monocytes 6.9 % (0.0-10.0); %Neutrophils 83.1 % (42.0-75.0)
[2024-01-01] MEDS ORDERED: D5 1/2 NS w/20 mEq KCL 1,000 ML IV SCH (09:17)
[2024-01-01] MEDS: Potassium Chloride 20 MEQ in Premix 1 BAG IVPB SCH (12:46)
[2024-01-01] MEDS: Potassium Chloride 40 MEQ in Premix 1 BAG IVPB SCH (16:02)
[2024-01-01] MEDS ORDERED: Ipratropium/Albuterol 3 ML NEB NEB PRN (17:14)
[2024-01-02] MEDS: traMADol HCl 50 MG TAB PO PRN (00:02)
[2024-01-02 07:22] LABS: #Basophils Less than 0.03 10x3/uL (0.0-0.2); %Basophils 0.3 % (0.0-1.0); %Eosinophils 1.7 % (0.0-10.0); %Lymphocytes 16.8 % (21.0-51.0); %Monocytes 7.5 % (0.0-10.0); Hematocrit 29.1 % (36.0-47.0); Hemoglobin 9.5 g/dL (12.0-16.0); Mean Corpuscular HGB CONC 32.1 g/dL (32.0-36.0); Mean Corpuscular Hemoglobin 35.1 pg (27.0-31.0); Mean Corpuscular Volume 109.2 fL (78.0-98.0); Mean Platelet Volume 10.6 fL (7.4-10.4); Platelet Count 113 10x3/uL (130-400); RBC Distribution Width 12.8 % (11.5-14.5); Red Blood Cell (RBC) Count 2.71 mill/uL (4.20-5.40)
[2024-01-02 07:41] LABS: Anion Gap 10 mmol/L (10-20); BUN (Urea Nitrogen) 4 mg/dL (7.0-18.7); Calc. Creatinine Clearance 147 mL/min (70-130); Calcium 8.2 mg/dL (7.8-10.44); Carbon Dioxide 21 mmol/L (22-29); Chloride 109 mmol/L (98-107); Estimated GFR 113; Glucose 78 mg/dL (70-105); Potassium 3.1 mmol/L (3.5-5.1); Sodium 137 mmol/L (136-145)
[2024-01-02] MEDS ORDERED: Potassium Chloride 40 MEQ in Premix 1 BAG IVPB SCH (08:00)
[2024-01-02] MEDS: Potassium Chloride 20 MEQ in Premix 1 BAG IVPB SCH ×2 (08:57→16:44)
[2024-01-02 15:46] LABS: Potassium 3.2 mmol/L (3.5-5.1)
[2024-01-02 17:57] LABS: Magnesium 1.6 mg/dL (1.6-2.6)
[2024-01-03 03:45] VITALS: BP 157/98; TEMP 97.6
[2024-01-03 06:06] LABS: Anion Gap 13 mmol/L (10-20); BUN (Urea Nitrogen) Less than 4 mg/dL (7.0-18.7); Calc. Creatinine Clearance 142 mL/min (70-130); Calcium 8.5 mg/dL (7.8-10.44); Carbon Dioxide 21 mmol/L (22-29); Chloride 106 mmol/L (98-107); Estimated GFR 112; Glucose 89 mg/dL (70-105); Potassium 3.4 mmol/L (3.5-5.1); Sodium 137 mmol/L (136-145)
== END 2024-01-03 12:59 | disposition home or self-care (01) | DRG 330 ==
LOC: SDC 08:51 → SJJU 15:30
PROVIDERS: ADMIT Surgery; ATTEND Surgery
PROC: 0DSB4ZZ Reposition Ileum, Percutaneous Endoscopic Approach (ICD-10-PCS; principal; 2023-12-29)
PROC: 8E0W4CZ Robotic Assisted Procedure of Trunk Region, Percutaneous Endoscopic Approach (ICD-10-PCS; 2023-12-29)
PROC: 3E033XZ Introduction of Vasopressor into Peripheral Vein, Percutaneous Approach (ICD-10-PCS; 2023-12-29)
DX: C18.9 Malignant neoplasm of colon, unspecified (principal); K56.7 Ileus, unspecified; Z93.2 Ileostomy status; L25.9 Unspecified contact dermatitis, unspecified cause; N94.6 Dysmenorrhea, unspecified; Z98.890 Other specified postprocedural states; Z79.899 Other long term (current) drug therapy
CPT/HCPCS: 36415; 36416; 71275; 74177; 80048; 82533; 83735; 85025; 87324; 87449; 94640; A4314; J0171; J0665; J0694; J1100; J1170; J1650; J1885; J2270; J2405; J2543; J2704; J3480; J3490; J7050; J7620; Q9963; Q9967; S0028

== ENCOUNTER 2024-01-11 15:40 | Outpatient (CLI) | payer BC | END 2024-01-11 15:41 | disposition home or self-care (01) | LOC: RAD 15:40 | PROVIDERS: ATTEND Surgery | DX: C18.9 Malignant neoplasm of colon, unspecified (principal); Z98.890 Other specified postprocedural states | CPT/HCPCS: 74019 ==

== ENCOUNTER 2024-01-16 11:46 | Outpatient (CLI) | payer BC ==
[2024-01-16] MEDS ORDERED: GASTROGRAFIN 30 ML BOT ONE (12:27)
[2024-01-16] MEDS ORDERED: Iopamidol-370 76% 500 ML MDV (1 ML CHARGE) ONE (12:27)
== END 2024-01-16 11:47 | disposition home or self-care (01) ==
LOC: RAD 11:46
PROVIDERS: ATTEND Internal Medicine Critical Care Medicine
DX: R10.9 Unspecified abdominal pain (principal); K56.699 Other intestinal obstruction unspecified as to partial versus complete obstruction; K76.89 Other specified diseases of liver; R60.0 Localized edema
CPT/HCPCS: 74177; Q9963; Q9967

== ENCOUNTER 2024-01-16 15:04 | Inpatient (IN) | payer BC ==
[2024-01-16] MEDS ORDERED: Dextrose 5% in Water 1,000 ML IV PRN (15:10)
[2024-01-16] MEDS ORDERED: Glucagon 1 MG/ML KIT IM PRN (15:10)
[2024-01-16] MEDS ORDERED: Ipratropium/Albuterol 3 ML NEB NEB PRN (15:10)
[2024-01-16] MEDS ORDERED: Ondansetron PF 4 MG/2 ML Vial IVP PRN (15:10)
[2024-01-16] MEDS ORDERED: Ketorolac Tromethamine 30 MG (1 mL) VIAL IVP PRN (15:10)
[2024-01-16] MEDS ORDERED: Promethazine HCl 25 MG/ML VIAL IM PRN (15:10)
[2024-01-16] MEDS ORDERED: Dextrose 50% Abboject 50 ML SYRINGE SLOW IVP PRN (15:10)
[2024-01-16] MEDS ORDERED: hydrALAZINE 20 MG/ML VIAL SLOW IVP PRN (15:10)
[2024-01-16] MEDS ORDERED: Acetaminophen 325 MG TAB PO PRN (15:13)
[2024-01-16 17:01] LABS: #Basophils Less than 0.03 10x3/uL (0.0-0.2); %Basophils 0.2 % (0.0-1.0); %Eosinophils 0.7 % (0.0-10.0); %Lymphocytes 24.5 % (21.0-51.0); %Monocytes 8.3 % (0.0-10.0); Hematocrit 30.7 % (36.0-47.0); Hemoglobin 9.9 g/dL (12.0-16.0); Mean Corpuscular HGB CONC 32.2 g/dL (32.0-36.0); Mean Corpuscular Hemoglobin 34.7 pg (27.0-31.0); Mean Corpuscular Volume 107.7 fL (78.0-98.0); Mean Platelet Volume 9.8 fL (7.4-10.4); Platelet Count 281 10x3/uL (130-400); RBC Distribution Width 13.2 % (11.5-14.5); Red Blood Cell (RBC) Count 2.85 mill/uL (4.20-5.40)
[2024-01-16 17:16] LABS: Anion Gap 17 mmol/L (10-20); BUN (Urea Nitrogen) 5 mg/dL (7.0-18.7); Calc. Creatinine Clearance 0 mL/min (70-130); Calcium 9.1 mg/dL (7.8-10.44); Carbon Dioxide 21 mmol/L (22-29); Chloride 105 mmol/L (98-107); Estimated GFR 110; Glucose 82 mg/dL (70-105); Potassium 3.8 mmol/L (3.5-5.1); Sodium 139 mmol/L (136-145)
[2024-01-16] MEDS: Piperacillin/Tazobactam 3.375 GM in Sodium Chloride 0.9% 100 ML IVPB SCH ×2 (17:23→20:30)
[2024-01-16] MEDS: D5 1/2 NS w/20 mEq KCL 1,000 ML IV SCH (17:23)
[2024-01-16 17:31] VITALS: BMI 26.6
[2024-01-16] MEDS: Famotidine 20 MG TAB PO SCH (20:30)
[2024-01-16] MEDS: Enoxaparin 40 MG (0.4 mL) SYRINGE SC SCH (20:33)
[2024-01-16] MEDS: Famotidine/PF 20 mg/2ml Vial SLOW IVP SCH (20:34)
[2024-01-16] MEDS: HYDROcodone/Acetaminophen 7.5/325 mg Tablet PO PRN (21:41)
[2024-01-17] MEDS ORDERED: Bupivacaine 0.25% HCL 30 ML VIAL ONE (07:18)
[2024-01-17] MEDS ORDERED: EPINEPHrine 1 MG/ML VIAL ONE (07:18)
[2024-01-17] MEDS ORDERED: Midazolam HCl 2 mg/2 ml Vial ONE (08:58)
[2024-01-17] MEDS ORDERED: Lidocaine 1% PF 5 ML VIAL ONE (08:58)
[2024-01-17] MEDS ORDERED: Ketorolac Tromethamine 30 MG (1 mL) VIAL ONE (08:58)
[2024-01-17] MEDS ORDERED: Rocuronium Bromide 10 MG/ML (10ML VIAL) ONE (08:58)
[2024-01-17] MEDS ORDERED: PROPOFOL 20 ML ONE (08:58)
[2024-01-17] MEDS ORDERED: Dexamethasone 4 mg/ml Vial ONE (08:58)
[2024-01-17] MEDS ORDERED: Ondansetron PF 4 MG/2 ML Vial ONE (08:58)
[2024-01-17] MEDS ORDERED: fentaNYL PF 100 MCG/2 ML SYRINGE ONE (08:58)
[2024-01-17] MEDS ORDERED: SUGAMMADEX SODIUM 200 MG/2 ML VIAL ONE (10:03)
[2024-01-17] MEDS ORDERED: fentaNYL 50 mcg/mL 1 mL Vial ONE ×2 (10:08→10:34)
[2024-01-17] MEDS ORDERED: D5 1/2 NS w/20 mEq KCL 1,000 ML IV SCH (10:38)
[2024-01-17] MEDS: Morphine 4 MG/ML VIAL SLOW IVP PRN (23:00)
[2024-01-17] MEDS: HYDROcodone/Acetaminophen 7.5/325 mg Tablet PO PRN (23:00)
[2024-01-19 12:41] VITALS: TEMP 97.1
== END 2024-01-19 14:09 | disposition home or self-care (01) | DRG 393 ==
LOC: EDSTATUS 15:54 → IMCU/EMU 15:54
PROVIDERS: ADMIT Surgery; ATTEND Surgery
PROC: 0DBW4ZX Excision of Peritoneum, Percutaneous Endoscopic Approach, Diagnostic (ICD-10-PCS; principal; 2024-01-17)
PROC: 0DBU4ZX Excision of Omentum, Percutaneous Endoscopic Approach, Diagnostic (ICD-10-PCS; 2024-01-17)
DX: K66.8 Other specified disorders of peritoneum (principal); K65.9 Peritonitis, unspecified; K56.699 Other intestinal obstruction unspecified as to partial versus complete obstruction; Z98.890 Other specified postprocedural states; R10.9 Unspecified abdominal pain; K76.89 Other specified diseases of liver; R60.0 Localized edema
CPT/HCPCS: 36415; 74177; 80048; 85025; 87324; 87449; 88305; 88341; 88342; A4314; J0171; J0665; J1100; J1885; J2250; J2270; J2405; J2543; J2704; J3010; J3480; J3490; Q9963; Q9967

== ENCOUNTER 2024-01-25 09:38 | Day surgery (SDC) | payer BC ==
[2024-01-22 13:37] VITALS: BMI 27.7
[2024-01-25] MEDS ORDERED: Sodium Chloride 0.9% 100 ML ONE (10:42)
[2024-01-25] MEDS ORDERED: Lidocaine 1% MPF 2 ML VIAL ONE (10:42)
[2024-01-25] MEDS ORDERED: CEFAZOLIN 2 GM VIAL ONE (10:42)
[2024-01-25] MEDS ORDERED: Bupivacaine 0.25% HCL 30 ML VIAL ONE (10:56)
[2024-01-25] MEDS ORDERED: Lidocaine 2% PF 5 ML VIAL ONE (10:56)
[2024-01-25] MEDS ORDERED: EPINEPHrine 1 MG/ML VIAL ONE (10:56)
[2024-01-25] MEDS ORDERED: Propofol 1,000 MG/100 ML VIAL IV ONE (10:59)
[2024-01-25] MEDS ORDERED: Midazolam HCl 2 mg/2 ml Vial ONE ×2 (11:23→11:28)
[2024-01-25] MEDS ORDERED: fentaNYL PF 100 MCG/2 ML SYRINGE ONE (11:40)
[2024-01-25] MEDS ORDERED: Ondansetron PF 4 MG/2 ML Vial ONE (11:44)
[2024-01-25] MEDS ORDERED: Lidocaine 1% PF 5 ML VIAL ONE (11:46)
== END 2024-01-25 13:13 | disposition home or self-care (01) ==
LOC: SDC 09:38
PROVIDERS: ATTEND Surgery
PROC: 0JH63WZ Insertion of Totally Implantable Vascular Access Device into Chest Subcutaneous Tissue and Fascia, Percutaneous Approach (ICD-10-PCS; principal; 2024-01-25)
DX: C18.9 Malignant neoplasm of colon, unspecified (principal); C80.0 Disseminated malignant neoplasm, unspecified
CPT/HCPCS: 71045; C1788; J0171; J0665; J1642; J2001; J2250; J2405; J2704; J3490

== ENCOUNTER 2024-01-27 10:15 | Outpatient (CLI) | payer BC | END 2024-01-27 10:16 | disposition home or self-care (01) | LOC: PET 10:15 | PROVIDERS: ATTEND Internal Medicine | DX: C18.2 Malignant neoplasm of ascending colon (principal); D50.8 Other iron deficiency anemias; C78.6 Secondary malignant neoplasm of retroperitoneum and peritoneum | CPT/HCPCS: 78815; A9552 ==

== ENCOUNTER 2024-04-01 08:45 | Outpatient (CLI) | payer BC | END 2024-04-01 08:46 | disposition home or self-care (01) | LOC: PET 08:45 | PROVIDERS: ATTEND Internal Medicine | DX: C18.2 Malignant neoplasm of ascending colon (principal); R18.0 Malignant ascites | CPT/HCPCS: 78815; A9552 ==

== ENCOUNTER 2024-04-04 07:11 | Outpatient (CLI) | payer BC ==
[2024-04-04] MEDS ORDERED: Iopamidol 370 76% 100 ML VIAL ONE (14:56)
[2024-04-04] MEDS ORDERED: GASTROGRAFIN 30 ML BOT ONE (14:56)
== END 2024-04-04 07:12 | disposition home or self-care (01) ==
LOC: CT 07:11
PROVIDERS: ATTEND Internal Medicine
DX: C18.9 Malignant neoplasm of colon, unspecified (principal); R93.89 Abnormal findings on diagnostic imaging of other specified body structures; I82.421 Acute embolism and thrombosis of right iliac vein; C78.6 Secondary malignant neoplasm of retroperitoneum and peritoneum; K76.89 Other specified diseases of liver; Z90.49 Acquired absence of other specified parts of digestive tract
CPT/HCPCS: 74177; J1642

== ENCOUNTER 2024-04-04 08:26 | Observation (INO) | payer BC ==
[2024-04-04 09:36] LABS: #Basophils Less than 0.03 10x3/uL (0.0-0.2); %Basophils 0.5 % (0.0-1.0); %Eosinophils 2.3 % (0.0-10.0); %Lymphocytes 42.7 % (21.0-51.0); %Monocytes 7.8 % (0.0-10.0); %Neutrophils 46.4 % (42.0-75.0); Hematocrit 34.9 % (36.0-47.0); Hemoglobin 11.8 g/dL (12.0-16.0); Mean Corpuscular HGB CONC 33.8 g/dL (32.0-36.0); Mean Corpuscular Hemoglobin 32.9 pg (27.0-31.0); Mean Corpuscular Volume 97.2 fL (78.0-98.0); Mean Platelet Volume 9.6 fL (7.4-10.4); Platelet Count 136 10x3/uL (130-400); Red Blood Cell (RBC) Count 3.59 mill/uL (4.20-5.40)
[2024-04-04 09:41] LABS: Prothrombin Time 12.7 sec (12.0-14.7)
[2024-04-04 09:47] LABS: ALT (SGPT) 14 U/L (8-55); AST (SGOT) 17 U/L (5-34); Albumin 3.4 g/dL (3.5-5.0); Alkaline Phosphatase 82 U/L (40-110); Anion Gap 13 mmol/L (10-20); BUN (Urea Nitrogen) 7 mg/dL (7.0-18.7); Bilirubin, Total 0.6 mg/dL (0.2-1.2); Calc. Creatinine Clearance 0 mL/min (70-130); Calcium 8.8 mg/dL (7.8-10.44); Carbon Dioxide 21 mmol/L (22-29); Chloride 110 mmol/L (98-107); Estimated GFR 102; Glucose 97 mg/dL (70-105); Magnesium 2.1 mg/dL (1.6-2.6); Potassium 3.7 mmol/L (3.5-5.1); Protein, Total 6.4 g/dL (6.0-8.3); Sodium 140 mmol/L (136-145)
[2024-04-04 09:52] LABS: Troponin I Less than 0.010 ng/mL (< 0.028)
[2024-04-04] MEDS ORDERED: Heparin 5,000 UNITS/ML VIAL ONE (10:17)
[2024-04-04] MEDS ORDERED: Heparin 25,000 units/D5W 500 ML ONE (10:18)
[2024-04-04] MEDS ORDERED: Acetaminophen 325 MG TAB PO PRN (13:05)
[2024-04-04] MEDS ORDERED: Calcium Carbonate 500 MG ChewTAB PO PRN (13:05)
[2024-04-04] MEDS ORDERED: traMADol HCl 50 MG TAB PO PRN (13:05)
[2024-04-04] MEDS ORDERED: Senokot S 8.6-50 MG TAB PO PRN (13:05)
[2024-04-04 13:49] VITALS: BMI 26.2
[2024-04-04] MEDS: Enoxaparin 120 MG/0.8 ML SYRINGE SC SCH (14:29)
[2024-04-04] MEDS ORDERED: Iopamidol-370 76% 500 ML MDV (1 ML CHARGE) ONE (15:07)
[2024-04-04 15:35] LABS: Troponin I Less than 0.010 ng/mL (< 0.028)
[2024-04-04] MEDS: Gabapentin 300 MG CAP PO SCH (20:08)
[2024-04-05 04:06] LABS: Hematocrit 33.2 % (36.0-47.0); Hemoglobin 10.9 g/dL (12.0-16.0); Mean Corpuscular HGB CONC 32.8 g/dL (32.0-36.0); Mean Corpuscular Hemoglobin 32.7 pg (27.0-31.0); Mean Corpuscular Volume 99.7 fL (78.0-98.0); Mean Platelet Volume 9.6 fL (7.4-10.4); Platelet Count 123 10x3/uL (130-400); RBC Distribution Width 15.1 % (11.5-14.5); Red Blood Cell (RBC) Count 3.33 mill/uL (4.20-5.40)
[2024-04-05 04:15] LABS: ALT (SGPT) 12 U/L (8-55); AST (SGOT) 14 U/L (5-34); Albumin 3.1 g/dL (3.5-5.0); Alkaline Phosphatase 76 U/L (40-110); Anion Gap 11 mmol/L (10-20); BUN (Urea Nitrogen) 6 mg/dL (7.0-18.7); Bilirubin, Total 0.4 mg/dL (0.2-1.2); Calc. Creatinine Clearance 120 mL/min (70-130); Calcium 8.5 mg/dL (7.8-10.44); Carbon Dioxide 24 mmol/L (22-29); Chloride 110 mmol/L (98-107); Estimated GFR 102; Globulin 2.6 g/dL (2.4-3.5); Glucose 97 mg/dL (70-105); Potassium 3.4 mmol/L (3.5-5.1); Protein, Total 5.7 g/dL (6.0-8.3); Sodium 142 mmol/L (136-145)
[2024-04-05 04:17] LABS: Troponin I Less than 0.010 ng/mL (< 0.028)
[2024-04-05 04:55] LABS: Anisocytosis SLIGHT = 6-15 cells HPF (0-5); Eosinophils 1 % (0-10); Lymphocytes 69 % (21-51); Microcytosis SLIGHT = 6-15 cells HPF (0-5); Monocytes 3 % (0-10); Neutrophil 26 % (42-75); Platelet Adequacy Comment Platelets Normal; Polychromasia SLIGHT = 2-3 cells HPF (0-2)
[2024-04-05] MEDS: Potassium Chloride 20 MEQ TAB PO SCH (08:24)
[2024-04-05] MEDS: Apixaban 5 MG TAB PO SCH (08:24)
[2024-04-05 08:45] VITALS: TEMP 96.8
== END 2024-04-05 11:00 | disposition home or self-care (01) ==
LOC: ERS 08:26 → SUATTDRO 08:26 → IMCU/EMU 13:31
PROVIDERS: ADMIT Internal Medicine; ATTEND Internal Medicine
DX: I26.99 Other pulmonary embolism without acute cor pulmonale (principal); I82.421 Acute embolism and thrombosis of right iliac vein; C18.9 Malignant neoplasm of colon, unspecified; Z79.01 Long term (current) use of anticoagulants; Z79.899 Other long term (current) drug therapy
CPT/HCPCS: 36415; 71275; 74177; 80053; 83735; 83880; 84484; 85025; 85610; 85730; 93005; 93306; 93970; 96372; G0378; J1642; J1644; J1650; Q9963; Q9967

== ENCOUNTER 2024-05-30 07:47 | Outpatient (CLI) | payer BC ==
[2024-05-30] MEDS ORDERED: Iopamidol 370 76% 100 ML VIAL ONE (10:22)
== END 2024-05-30 07:48 | disposition home or self-care (01) ==
LOC: CT 07:47
PROVIDERS: ATTEND Internal Medicine
DX: C18.2 Malignant neoplasm of ascending colon (principal); D50.8 Other iron deficiency anemias; I82.421 Acute embolism and thrombosis of right iliac vein; K76.89 Other specified diseases of liver; R18.8 Other ascites
CPT/HCPCS: 71260; 74177; J1642; Q9967

== ENCOUNTER 2025-02-20 21:50 | Inpatient (IN) | payer BC ==
[2025-02-20] MEDS ORDERED: HYDROmorphone 0.5 MG/0.5 ML SYRINGE ONE (22:37)
[2025-02-20] MEDS ORDERED: Glycopyrrolate 0.4 MG/ 2 ML VIAL SLOW IVP PRN (23:07)
[2025-02-20] MEDS ORDERED: Ondansetron PF 4 MG/2 ML Vial IVP PRN (23:08)
[2025-02-21 00:56] VITALS: BP 72/46
[2025-02-21] MEDS: Ketorolac Tromethamine 30 MG (1 mL) VIAL IVP SCH (01:47)
[2025-02-21] MEDS: HYDROmorphone 0.5 MG/0.5 ML SYRINGE SLOW IVP PRN (01:47)
== END 2025-02-21 09:02 | disposition hospice, inpatient (51) | DRG 951 ==
LOC: EEVIPCON 21:50 → ERS 21:50 → CCU 22:54
PROVIDERS: ADMIT Student in an Organized Health Care Education/Training Program; ATTEND Emergency Medicine
DX: Z51.5 Encounter for palliative care (principal); C18.9 Malignant neoplasm of colon, unspecified; G93.40 Encephalopathy, unspecified; R64 Cachexia; Z66 Do not resuscitate; Z98.890 Other specified postprocedural states; Z90.49 Acquired absence of other specified parts of digestive tract; Z92.21 Personal history of antineoplastic chemotherapy
CPT/HCPCS: 96374; 96375; J1171; J1885; J2060; J2270

== ENCOUNTER 2025-02-21 09:21 | Inpatient (IN) | payer OTHER ==
[2025-02-21] MEDS ORDERED: Ketorolac Tromethamine 30 MG (1 mL) VIAL IVP PRN (09:31)
[2025-02-21] MEDS ORDERED: Ondansetron PF 4 MG/2 ML Vial IVP PRN (09:32)
[2025-02-21] MEDS: diphenhydrAMINE 50 MG/ML VIAL IVP PRN (21:50)
[2025-02-21] MEDS: Glycopyrrolate 0.4 MG/ 2 ML VIAL SLOW IVP PRN (23:55)
== END 2025-02-22 04:47 | disposition expired | DRG 951 ==
LOC: EEVIPCON 09:21 → CCU 09:21
PROVIDERS: ADMIT Internal Medicine Nephrology; ATTEND Internal Medicine Nephrology
DX: Z51.5 Encounter for palliative care (principal); C18.9 Malignant neoplasm of colon, unspecified; R64 Cachexia; G93.40 Encephalopathy, unspecified; I95.9 Hypotension, unspecified; Z66 Do not resuscitate; Z99.81 Dependence on supplemental oxygen
CPT/HCPCS: J1200; J2060; J2270